=== PATIENT | female | born 1975 | race Caucasian/White ===

== ENCOUNTER 2016-09-29 10:34 | Emergency (ER) | payer BC ==
[2016-09-29 11:16] VITALS: BP 116/78
--- NOTE | 2016-09-29 12:29 | UC ---
Ear Complaint HPI - HPI Summary HPI Summary: ONE WEEK OF SINUS CONGESTION, SYMPTOMS IMPROVING, BUT LAST TWO DAYS HAS HAD RIGHT EAR DISCOMFORT. NO FEVER NO COUGH. - History of Current Complaint Chief Complaint: UCEar Stated Complaint: EAR ACHE Time Seen by Provider: 09/29/16 12:02 Hx Obtained From: Patient Hx Last Menstrual Period: 09/25/16 Onset/Duration: Gradual Onset, Lasting Days, Worse Since - DAILY Severity Initially: Mild Severity Currently: Moderate Associated Signs/Symptoms: Positive: URI Symptoms - Allergies/Home Medications Allergies/Adverse Reactions: Allergies Allergy/AdvReac Type Severity Reaction Status Date / Time No Known Allergies Allergy Verified 02/15/15 19:34 Home Medications: Home Medications Ibuprofen TAB* [Advil TAB*] 400 mg PO Q6H PRN 09/29/16 [History Confirmed ] PMH/Surg Hx/FS Hx/Imm Hx Previously Healthy: Yes Psychological History Of: Reports: Depression - Surgical History Surgical History: Yes Surgery Procedure, Year, and Place: TONSILLECTOMY, APPENDECTOMY, CHOLECYSTECTOMY - Family History Known Family History: Negative: Respiratory Disease - Social History Occupation: Employed Full-time Lives: With Family Alcohol Use: Weekly Alcohol Amount: occasional Substance Use Type: None Smoking Status (MU): Never Smoked Tobacco Have You Smoked in the Last Year: No - Immunization History Most Recent Influenza Vaccination: 09/17/12 Most Recent Tetanus Shot: 2006 Review of Systems Constitutional: Negative Skin: Negative Eyes: Negative ENT: Ear Ache Respiratory: Negative Cardiovascular: Negative Gastrointestinal: Negative Genitourinary: Negative Motor: Negative Neurovascular: Negative Musculoskeletal: Negative Neurological: Negative Psychological: Negative All Other Systems Reviewed And Are Negative: Yes Physical Exam Triage Information Reviewed: Yes Appearance: Well-Appearing, No Pain Distress, Well-Nourished Vital Signs: Initial Vital Signs Temp 99.5 F 09/29/16 11:11 Pulse 96 09/29/16 11:11 Resp 18 09/29/16 11:11 BP 116/78 09/29/16 11:11 Pulse Ox 98 09/29/16 11:11 Vital Signs Reviewed: Yes Eye Exam: Normal Eyes: Positive: Conjunctiva Clear ENT: Positive: Hearing grossly normal, Pharynx normal, TM bulging, Other: - EDEMA ERRETHEMA RIGHT EXTERNAL AUDITORY CANAL Dental Exam: Normal Neck exam: Normal Neck: Positive: Supple, Nontender, No Lymphadenopathy Respiratory Exam: Normal Respiratory: Positive: Chest non-tender, Lungs clear, Normal breath sounds, No respiratory distress, No accessory muscle use Cardiovascular Exam: Normal Cardiovascular: Positive: RRR, No Murmur, Pulses Normal Abdominal Exam: Normal Abdomen Description: Positive: Nontender, No Organomegaly Musculoskeletal Exam: Normal Musculoskeletal: Positive: Strength Intact Neurological Exam: Normal Psychological Exam: Normal Skin Exam: Normal Ear Complaint Course/Dx - Differential Dx/Diagnosis Differential Diagnosis/HQI/PQRI: Otitis Externa, Otitis Media Provider Diagnoses: RIGHT OTITIS EXTERNA. UPPER RESPIRATORY INFECTION Discharge - Discharge Plan Condition: Stable Disposition: HOME Prescriptions: Neomyc/Polym/HC 1% OTIC SUSP* [Cortisporin Otic Susp 1%*] 4 drop BOTH EYES TID # 1 btl Patient Education Materials: Otitis Externa (ED), Upper Respiratory Infection ( ED) Referrals: Marilee Owens MD [Primary Care Provider] -
== END 2016-09-29 12:33 | disposition home or self-care (01) ==
LOC: UCEAST 10:34
DX: H60.91 Unspecified otitis externa, right ear (principal); J06.9 Acute upper respiratory infection, unspecified
CPT/HCPCS: 99212; G0463